=== PATIENT | female | born 1990 ===

== ENCOUNTER 2025-10-23 10:42 | Outpatient (CLI) | payer OTHER ==
[2025-10-23 11:58] LABS: BASO % 0.2 % (0.1-1.2); EOS # 0.01 (0.04-0.54); EOS % 0.1 % (0.7-7.0); LYMPH # 0.92 (1.18-3.74); LYMPH % 6.2 % (19.3-53.1); MEAN PLATELET VOLUME 12.00 fl (9.4-12.4); MONO # 1.39 (0.24-0.82); MONO % 9.4 % (4.7-12.5); NEUT # 12.33 (1.56-6.13); NEUT % 83.8 % (34.0-71.1); RED CELL DISTRIBUTION WIDTH 14.1 % (11.6-14.4)
[2025-10-23 12:39] LABS: ALT/SGPT 20.0 U/L (12-78); AST/SGOT 12.0 U/L (15-37); BILIRUBIN TOTAL 0.59 mg/dL (0.3-1.2); BUN CREA RATIO 15.0 (7.0-25.0); CREATININE SERUM 0.62 mg/dL (0.55-1.02); GFR 108.91; GLOBULINA 3.5 G/DL (2.4-3.5); GLUCOSE FASTING 99.0 mg/dL (65-100); OSMOLALITY SERUM 280.0 MOSM/KG (275-295)
== END 2025-10-23 10:46 | disposition home or self-care (01) ==
LOC: LAB 10:42
DX: R50.9 Fever, unspecified (principal); B27.90 Infectious mononucleosis, unspecified without complication